=== PATIENT | female | born 1955 | race Caucasian/White ===

== ENCOUNTER → 2020-04-18 12:16 | Outpatient (CLI) | payer OTHER, SELFPAY ==
--- NOTE | ~2020-04-18 | DEXA_ITS ---
Bone Density Report Name: Gisel Roland Age: 65 Sex: Female Ethnicity: White Date of : 1955 Indication: postmenopausal; screening for osteoporosis; height loss; prior fracture; cancer; Referring Provider: THEO, SERA Abdalla Study: Bone densitometry was performed. Exam Date: April 18, 2020 Accession number: [id number] Bone Density: Region BMD T-score Z-score Classification AP Spine (L1-L4) 0.941 -1.0 0.7 Normal Femoral Neck (Left) 0.725 -1.1 0.3 Osteopenia Total Hip (Left) 0.948 0.1 1.2 Normal Femoral Neck (Right) 0.800 -0.4 1.0 Normal Total Hip (Right) 0.970 0.2 1.4 Normal Total Hip Mean 0.959 0.2 1.3 Normal World Health Organization criteria for BMD impression classify patients as: Normal (T-score at or above -1.0), Osteopenia (T-score between -1.0 and -2.5), or Osteoporosis (T-score at or below -2.5). 10-year Fracture Risk(1): Major Osteoporotic Fracture 12% Hip Fracture 0.8% Reported Risk Factors: [place] (), Neck BMD=0.725, BMI=37.3, previous fracture (1) FRAX(R) Version 3.08. Fracture probability calculated for an untreated patient. Fracture probability may be lower if the patient has received treatment. Clinical Information Provided by Patient: Has had a low trauma fracture Has used the following medications: Prolia (i.e. denosumab), Vitamin D, Calcium Has the following medical conditions: Cancer Patient maximum height was 68 Menopause Age: 41 No regular weight bearing exercise Does not regularly consume dairy products Drinks caffeinated beverages Onset of menses at age 17 Number of children 3 Impression: The patient has low bone mass, based on the Left Femoral Neck T-score. The patient has an estimated ten-year risk of hip fracture of 0.8% and an estimated ten-year risk of major fracture of 12%, based on the WHO FRAX algorithm. The patient has risk factors, including: previous fracture. Discussion: BONE DENSITY IS LOW AT ONE OR MORE SKELETAL SITES. This patient's lowest T-score is low at one or more skeletal sites. It meets the World Health Organization's (WHO) criteria for ?low bone mass? (T-score between -1.0 and -2.5). The patient's 10-year risk of fracture as calculated by FRAX is less than the threshold where pharmacological therapy is recommended by the National Osteoporosis Foundation (NOF). However, all treatment decisions require clinical judgment and consideration of individual patient factors, including patient preferences, comorbidities, previous drug use, risk factors not captured in the FRAX model (e.g., frailty, falls, vitamin D deficiency, increased bone turnover, interval significant decline in bone density) and possible under or overestimation of fracture risk by FRAX. The patient should follow a healthful lifestyle (good nutrition with adequa
== END ==
PROVIDERS: Visit Provider Nurse Practitioner Women's Health
DX: M85.852 Other specified disorders of bone density and structure, left thigh (principal)
CPT/HCPCS: 77080

== ENCOUNTER → 2020-04-27 14:53 | Outpatient (CLI) | payer OTHER, SELFPAY ==
--- NOTE | ~2020-04-27 | XR_ITS ---
EXAMINATION: XR knee LT min 4V, XR tibia fibula LT 2V DATE: 04/27/2020 15:28 INDICATION: Left knee pain rating down the posterior calf TECHNIQUE: 1. Weight bearing anteroposterior and Choudhary, sunrise, and flexed lateral views of the left knee w ere obtained 2. AP and lateral views of the left tibia and fibula were obtained. COMPARISON: None. FINDINGS: Alignment is normal. No fracture. Mild to moderate joint space during the medial compartment of the left knee. Additional mild joint space narrowing at one of the tarsal, metatarsal joints, likely the third. Main joints the mid and hindfoot. Mildly preserved. Moderate-sized plantar calcaneal spur. Pos sible small left ankle joint effusion. Soft tissues are otherwise unremarkable. IMPRESSION: 1. Left knee osteoarthritis with mild to moderate joint space narrowing in the medial compartment. 2. Possible small left knee joint effusion. Reviewed, dictated and finalized at location . 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 Left knee osteoarthritis with mild to moderate joint space narrowing in the medial compartment. 2. Possible small left knee joint effusion.
== END ==
PROVIDERS: PCP Internal Medicine Geriatric Medicine; Visit Provider Internal Medicine Geriatric Medicine
DX: M17.12 Unilateral primary osteoarthritis, left knee (principal)
CPT/HCPCS: 73564; 73590

== ENCOUNTER → 2022-04-21 14:48 | Outpatient (CLI) | payer OTHER, SELFPAY ==
--- NOTE | ~2022-04-21 | DEXA_ITS ---
Bone Density Report Name: RONIT MUNOZ Age: 67 Sex: Female Ethnicity: White Date of : 1955 Indication: monitoring treatment; height loss; prior fracture; cancer; postmenopausal Referring Provider: PATRICIA BAE Study: Bone densitometry was performed. Exam Date: April 21, 2022 Accession number: [id number] Bone Density: Region BMD T-score Z-score Classification AP Spine (L1-L4) 0.970 -0.7 1.1 Normal Femoral Neck (Left) 0.719 -1.2 0.4 Osteopenia Total Hip (Left) 0.951 0.1 1.4 Normal Femoral Neck (Right) 0.753 -0.9 0.7 Normal Total Hip (Right) 0.992 0.4 1.7 Normal Total Hip Mean 0.972 0.3 1.6 Normal World Health Organization criteria for BMD impression classify patients as: Normal (T-score at or above -1.0), Osteopenia (T-score between -1.0 and -2.5), or Osteoporosis (T-score at or below -2.5). 10-year Fracture Risk: FRAX not reported because: Treated for osteoporosis Previous Exams: Region Exam Age BMD T-score BMD Change BMD Change Date g/cm2 vs Baseline vs Previous AP Spine(L1-L4) 04/21/2022 67 0.970 -0.7 0.029* 0.029* 04/18/2020 65 0.941 -1.0 Total Hip(Left) 04/21/2022 67 0.951 0.1 0.003 0.003 04/18/2020 65 0.948 0.1 Total Hip(Right) 04/21/2022 67 0.992 0.4 0.023 0.023 04/18/2020 65 0.970 0.2 *Denotes significance at 95% confidence level, LSC for AP Spine = 0.022 g/cm2, LSC for Total Hip = 0.027 g/cm2 Clinical Information Provided by Patient: Has had a low trauma fracture Is being treated for osteoporosis Has used the following medications: Prolia (i.e. denosumab), Vitamin D, Calcium, ANESTROZOLE Has the following medical conditions: Cancer Patient maximum height was 68 Menopause Age: 41 No regular weight bearing exercise Does not regularly consume dairy products Drinks caffeinated beverages Onset of menses at age 17 Number of children 3 Impression: The patient has low bone mass, based on the Left Femoral Neck T-score. The patient has risk factors, including: previous fracture. No significant bone loss was observed. Discussion: PATIENT UNDER TREATMENT WITH NO SIGNIFICANT BMD LOSS SINCE LAST EXAM. In an untreated patient, BMD typically declines with age. A lack of decline or gain is usually a sign that treatment is efficacious and fracture risk is reduced. It is important to ask patients whether they are taking their medications and to encoura
== END ==
PROVIDERS: PCP Internal Medicine Geriatric Medicine
DX: C50.412 Malignant neoplasm of upper-outer quadrant of left female breast (principal); Z17.0 Estrogen receptor positive status [ER+]; M85.88 Other specified disorders of bone density and structure, other site
CPT/HCPCS: 77080

== ENCOUNTER → 2023-07-08 16:28 | Outpatient (CLI) | payer OTHER, SELFPAY ==
--- NOTE | ~2023-07-08 | XR_ITS ---
EXAMINATION: XR chest 2V DATE: 07/08/2023 16:47 INDICATION: Cough. TECHNIQUE: Frontal and lateral views of the chest were obtained. COMPARISON: None. FINDINGS: There is no pneumonia, pleural effusion, or pneumothorax. The heart size is normal. IMPRESSION: 1. No acute cardiopulmonary disease. Reviewed, dictated and finalized at location E. OPATHIC RESIDENT
== END ==
PROVIDERS: PCP Internal Medicine Geriatric Medicine; Visit Provider Internal Medicine Geriatric Medicine
DX: R05.9 Cough, unspecified (principal)
CPT/HCPCS: 71046

== ENCOUNTER 2025-04-07 14:13 | Outpatient (CLI) | payer OTHER, SELFPAY ==
--- NOTE | ~2025-04-07 | DEXA_ITS ---
Bone Density Report Name: RONIT MUNOZ Age: 69 Sex: Female Ethnicity: White Date of : 1955 Indication: postmenopausal; screening for osteoporosis; Referring Provider: THEO, SERA Abdalla Study: Bone densitometry was performed. Exam Date: April 07, 2025 Accession number: [id number] Bone Density: Region BMD T-score Z-score Classification AP Spine(L1-L4) 0.987 -0.5 1.5 Normal Femoral Neck (Left) 0.694 -1.4 0.3 Osteopenia Total Hip (Left) 0.902 -0.3 1.1 Normal Femoral Neck (Right) 0.718 -1.2 0.5 Osteopenia Total Hip (Right) 0.950 0.1 1.5 Normal Total Hip Mean 0.926 -0.1 1.3 Normal World Health Organization criteria for BMD impression classify patients as: Normal (T-score at or above -1.0), Osteopenia (T-score between -1.0 and -2.5), or Osteoporosis (T-score at or below -2.5). 10-year Fracture Risk(1): Major Osteoporotic Fracture 9.0% Hip Fracture 1.1% Reported Risk Factors: [place] (), Neck BMD=0.694, BMI=33.2 (1) FRAX(R) Version 3.08. Fracture probability calculated for an untreated patient. Fracture probability may be lower if the patient has received treatment. Impression: The patient has low bone mass, based on the Left Femoral Neck T-score. The patient has an estimated ten-year risk of hip fracture of 1.1% and an estimated ten-year risk of major fracture of 9%, based on the WHO FRAX algorithm. Discussion: BONE DENSITY IS LOW AT ONE OR MORE SKELETAL SITES. This patient's lowest T-score is low at one or more skeletal sites. It meets the World Health Organization's (WHO) criteria for ?low bone mass? (T-score between -1.0 and -2.5). The patient's 10-year risk of fracture as calculated by FRAX is less than the threshold where pharmacological therapy is recommended by the National Osteoporosis Foundation (NOF). However, all treatment decisions require clinical judgment and consideration of individual patient factors, including patient preferences, comorbidities, previous drug use, risk factors not captured in the FRAX model (e.g., frailty, falls, vitamin D deficiency, increased bone turnover, interval significant decline in bone density) and possible under or overestimation of fracture risk by FRAX. The patient should follow a healthful lifestyle (good nutrition with adequate calcium and vitamin D, and appropriate weight-bearing exercise). Follow-Up: Consider repeating this study in 2 to 3 years to reassess this patient's status, or sooner if there is some new clinical indication. Reported by: HERNANDEZ on 04/07/2025 3:01:00 PM. Reviewed, dictated and finalized at location A.
--- OUTSIDE RECORDS SUMMARY | 2025-04-07 14:21 | XMS_ITS | Encounter Summary ---
Author Organization [facility] Address [address] [place] [address] Phone Care Team Providers Care Agronomist Name Role Phone Vance Piña MD Primary Care Provider + Felisa Crawley MD Unavailable Cathi Brown MD PhD Unavaila ble Perla Moran PhD Unavailable [phone] Renetta Smith MD Unavailable Slava Leo MD Unavailable Encounter Details Date Type Department Care Team (Latest Contact Info) Description 04/18/2020 Orders Only [facility] Scanning, Provider Social History Tobacco Use Types Packs/Day Years Used Date Smoking Tobacco: Never Smokeless Tobacco: Former Alcohol Use Standard Drinks/Week Comments Yes 7 (1 standard drink = 0.6 oz pur e alcohol) Comments No Sex and Gender Information Value Date Recorded Sex Assigned at Not on file Legal Sex Female 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 Gender Identity Female 03/11/2024 8:04 PM CDT Sexual Orientation Asexual 03/11/2024 8: 04 PM CDT documented as of this encounter Plan of Treatment Not on file documented as of this encounter Procedures Procedure Name Priority Date/Time Associated Diagnosis Comments SCAN - RADIOLOGY/IMAGING 04/18/2020 documented in this encounter Results * SCAN - RADIOLOGY/IMAGING (04/18/2020) Anatomical Region Laterality Modality Other us Provider Scanning Final Result documented in this encounter Visit Diagnoses Not on filedocumented in this encounter Care Teams Agronomist Relationship Specialty Start Date End Date Vance Piña [place] [address] [facility] [address] [place] [address] PCP - General 09/04/16 Felisa Crawley MD [address] [place] [address] Radiation Oncologist Radiation Oncology 06/23/18 Cathi Brown MD PhD [address] [place] [address] Surgeon Surgical Oncology 06/23/18 Perla Moran, PhD [address] [place] [address] Nurse Practitioner Radiation Oncology 06/23/18 Renetta Smith MD [address] [place] [address] Medical Oncologist/Hose Tender Medical Oncology 06/24/18 05/23/20 Slava Leo MD [address] [facility] [address] [place] [address] Medical Oncologist/Hose Tender Medical Oncology 05/24/20 documented as of this encounter
--- OUTSIDE RECORDS SUMMARY | 2025-04-07 14:21 | XMS_ITS ---
Author Organization [facility] Address [address] [place] [address] Care Team Providers Care Boatswain'S Mate Name Role Phone Vance Piña MD Primary Care Provider + Felisa Crawley MD Unavailable Cathi Brown MD PhD Unavaila ble Perla Moran PhD Unavailable [phone] Slava Leo MD Unavailable Active Problems Problem Noted Date Diagnosed Date nursing home (current) use of aromatase inhibitors 07/18/2022 Bone disorder 07/18/2022 Encounter for monitoring aromatase inhibitor the rapy 06/18/2021 Other senior care (current) drug therapy 2 Personal history of colonic polyps 07/13/2020 Overview (07/13/2020): Added automatically from request for surgery [id number] Encounter for follow-up surveillance of breast c ancer 08/26/2018 Use of anastrozole (Arimidex) 08/11/2018 Osteopenia of spine 08/11/2018 Carcinoma of upper-outer lester drant of left breast in female, estrogen receptor positive 06/23/2018 Cancer Staging:Clinical stage from 05/27/2018:Stage IA(cT1, cN0, cM0, G1, ER: Positive, RI: Positive, HER2: Negative) - Signed by Perla Moran, PhD on 06/23/2018 Pathologic stage from 07/02/2018:Stage IA(pT1a, pN0(sn), cM0, G1, ER: Positive, RI: Positive, HER2: Negative) - Signed by Felisa Crawley MD on 07/14/2018 Current Treatment and Therapy Plans No current plan information found. Past Treatment and Therapy Plans Oncology Supportive Care Therapy Plan Plan Name Start Date Discontinue Date Treatment Medications Discontinue Reason Plan Provider DENOSUMAB (PROLIA) INJECTION 05/18/2019 07/18/2022 No medications scheduled. Therapy Complete Destinee Bauer MD Specialty Infusion Treatment Plan Name Start Date Discontinue Date Treatment Medications Discontinue Reason Plan Provider Zoledronic Acid (ZOMETA) Infusion 01/16/2023 07/24/2023 No medications scheduled. Therapy Complete Fadia Lizarraga NP Radiation Treatments * Course C1 L BREAST 201808/06/2018 - 08/12/2018 Treatment Period Energy Fraction Dose Fractions Total Dose Plans Planned VR LT BREAST 08/06/2018 - 08/12/2018 385 10 / 3,850 Reference Points Delivered LT BREAST 3850 08/06/2018 - 08/12/2018 3,850 Resolved Problems Problem Noted Date Diagnosed Date Resolved Date Encounter for screening colonoscopy 07/13/2020 06/18/2021 Overview (07/13/2020): Added automatically from request for surgery [id number] Fall on or from sidewalk curb 11/25/2018 06/18/2021
--- OUTSIDE RECORDS SUMMARY | 2025-04-07 14:21 | XMS_ITS | Encounter Summary ---
Author Organization [facility] Address [address] [place] [address] Phone Care Team Providers Care Conductor Road Freight Name Role Phone Vance Piña MD Primary Care Provider + Felisa Crawley MD Unavailable Cathi Brown MD PhD Unavaila ble Perla Moran PhD Unavailable [phone] Slava Leo MD Unavailable Encounter Details Date Type Department Care Team (Latest Contact Info) Description 12/03/2020 Orders Only [facility] Scanning, Provider Social History Tobacco Use Types Packs/Day Years Used Date Smoking Tobacco: Never Smokeless Tobacco: Former Alcohol Use Standard Drinks/Week Comments Yes 7 (1 standard drink = 0.6 oz pur e alcohol) occasionlly/ weekly Comments No Sex and Gender Information Value Date Recorded Sex Assigned at Not on file 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 Gender Identity Female 03/11/2024 8:04 PM CDT Sexual Orientation Asexual 03/11/2024 8: 04 PM CDT documented as of this encounter Plan of Treatment Not on file documented as of this encounter Procedures Procedure Name Priority Date/Time Associated Diagnosis Comments SCAN - RADIOLOGY/IMAGING 12/03/2020 documented in this encounter Results * SCAN - RADIOLOGY/IMAGING (12/03/2020) Anatomical Region Laterality Modality Other us Provider Scanning Final Result documented in this encounter Visit Diagnoses Not on filedocumented in this encounter Care Teams Conductor Road Freight Relationship Specialty Start Date End Date Vance Piña [place] [address] [facility] [address] [place] [address] PCP - General 09/04/16 Felisa Crawley MD [address] [place] [address] Radiation Oncologist Radiation Oncology 06/23/18 Cathi Brown MD PhD [address] [place] [address] Surgeon Surgical Oncology 06/23/18 Perla Moran, PhD [address] [place] [address] Nurse Practitioner Radiation Oncology 06/23/18 Slava Leo MD [address] [place] [address] Medical Oncologist/Hvac Installer Medical Oncology 05/24/20 documented as of this encounter
--- OUTSIDE RECORDS SUMMARY | 2025-04-07 14:21 | XMS_ITS | Encounter Summary ---
Author Organization [facility] Address [address] [facility] [address] [place] [address] Phone Care Team Providers Care On Air Director Name Role Phone Vance Piña MD Primary Care Provider + Felisa Crawley MD Unavailable Cathi Brown MD PhD Unavaila ble Perla Moran PhD Unavailable [phone] Slava Leo MD Unavailable Encounter Details Date Type Department Care Team (Late st Contact Info) Description 03/15/2025 Results Follow-Up [facility] Medicine Surgery [address] [facility] [address] [place] [address] Oksana Salter, JEFF [address] [facility] [phone] [place] [address] Screening Mammogram Bilateral W Da Social History Tobacco Use Types Packs/Day Years Used Date Smoking Tobacco: Never Passive Smoke Exposure: Never Smokeless Tobacco: Former Alcohol Use Standard Drinks/Week Comments Yes 7 (1 standard drink = 0.6 oz pur e alcohol) occasionlly/ weekly Personal Safety Answer Date Recorded Have you ever been in or are you currently in a harmful physical or emotional relationship or is someone making you feel afraid or unsafe? Denies 08/31/2024 Comments No Sex and Gender Information Value Date Recorded Sex Assigned at Not on file Legal Sex Female 3:48 AM MEDICAL I D SALES Gender Identity Female 03/11/2024 8:04 PM CDT Sexual Orientation Asexual 03/11/2024 8: 04 PM CDT documented as of this encounter Plan of Treatment Not on file documented as of this encounter Visit Diagnoses Not on filedocumented in this encounter Care Teams On Air Director Relationship Specialty Start Date End Date Vance Piña [place] [address] [facility] [address] [place] [address] PCP - General 09/04/16 Felisa Crawley MD [address] [facility] [address] [place] [address] Radiation Oncologist Radiation Oncology 06/23/18 Cathi Brown MD PhD [address] [facility] [address] [place] [address] Surgeon Surgical Oncology 06/23/18 Perla Moran, PhD [address] [facility] [address] [place] [address] Nurse Practitioner Radiation Oncology 06/23/18 Slava Leo MD [address] [facility] [address] [place] [address] Medical Oncologist/Wage And Hour Investigator Medical Oncology 05/24/20 documented as of this encounter
--- OUTSIDE RECORDS SUMMARY | 2025-04-07 14:21 | XMS_ITS | Encounter Summary ---
Author Organization [facility] Address [address] [facility] [place] [address] Care Team Providers Care Carpentry Foreman Name Role Phone Unavailable Primary Care Provider Unavailabl e Encounter Details Date Type Department Care Team (Late st Contact Info) Description 04/08/2019 Lab Requisition [facility] D[facility] [address] [place] [id number] Laurita Bolanos MD [address] [facility] [address] [place] [address] Social History Tobacco Use Types Packs/Day Years Used Date Smoking Tobacco: Never Assessed Comments Unknown Sex and Gender Information Value Date Recorded Sex Assigned at Not on file Legal Sex Female 12:16 PM CDT Gender Identity Not on file Sexual Orientation Not on file documented as of this encounter Plan of Treatment Not on file documented as of this encounter Procedures Procedure Name Priority Date/Time Associated Diagnosis Comments DERMATOPATH TECHNICAL REPORT Routine 04/07/2019 12:00 AM CDT documented in this encounter Results * DERMATOPATH TECHNICAL REPORT (04/07/2019 12:00 AM CDT) Case Report Dermatopathology Report Case: [id number] Authorizing Provider: Laurita Bolanos MD Collected: 04/07/2019 12:00 AM Ordering Location: [facility] Received: 04/08/2019 05:38 AM Pathologist: Ting Glaser MD Specimen: Skin, mid abdomen 9 2:15 PM CDT DERMATOPATHOLOGY LABORATORY Clinical History R/O ISK vs less SCC, VV. Fhx of MM. 9 2:15 PM CDT DERMATOPATHOLOGY LABORATORY Gross Description Specimen A: Received is one formalin filled container labeled with the patient's name and designated mid abdomen. The specimen consists of a shave measuring [id number], bisected. Jar 0. [facility] Dermatopathology Laboratory performed the technical component only. 2:15 PM CDT DERMATOPATHOLOGY LABORATORY Embedded Images 2:15 PM CDT DERMATOPATHOLOGY LABORATORY DISCLAIMER An external and internal positive and negative controls are appropriate for the histochemical, immunohistochemical and immunofluorescence stain(s) in this case (if any), except where stated explicitly. The performance characteristics of the stain(s) cited in this report were developed and its performance characteristic determined by the Dermatopathology Laboratory at [facility], directed by Dr. Sonia Glaser. These tests need not be, and therefore are not, approved by the [place] Food and Drug Administration. The tests are used for clinical purposes. 2:15 PM T DERMATOPATHOLOGY LABORATORY at 1415 CDT Pathology/Cytolog y TISSUE SPECIMEN FROM SKIN / Unknown 04/07/2019 04/08/2019 5:38 AM CDT us Laurita Bolanos MD LAB - PATHOLOGY/CYTOLOGY ORD ERABLES Final Result DERMATOPATHOLOGY LABORATORY [facility] - Department of Dermatology [address] 5th [place] [address], [facility] [phone] documented in this encounter Visit Diagnoses Not on filedocumented in this encounter
--- OUTSIDE RECORDS SUMMARY | 2025-04-07 14:21 | XMS_ITS | Clinical Summary ---
Author Organization [facility] Address [address] [place] [address] Care Team Providers Care Alumni Relations Manager Name Role Phone Vance Piña MD Primary Care Provider + Felisa Cralwey MD Unavailable Cathi Brown MD PhD Unavaila ble Perla Moran PhD Unavailable [phone] Slava Leo MD Unavailable Allergies No known active allergies Medications cholecalciferol (VITAMIN D-3) 1,000 unit tablet Take 1 tablet (1,000 Units total) by mouth every morning Active pantoprazole DR (PROTONIX) 40 mg EC tablet Take 1 tablet (40 mg total) by mouth daily as needed Active cetirizine (ZyrTEC) 10 mg tablet Take 1 tablet (10 mg total) by mouth daily as needed for allergies Active aspirin 81 mg tablet Take 1 tablet (81 mg total) by mouth every morning Active atorvastatin (LIPITOR) 40 mg tablet Take 1 tablet (40 mg total) by mouth every morning Active calcium carbonate-vitamin D3 1,500 mg (600mg elemental) -800 unit per tablet Take 2 tablets by mouth every morning Active acetaminophen (TYLENOL) 500 mg tabletIndications: Pain Take 1 tablet (500 mg total) by mouth every 6 (six) hours as needed for pain. 92 tablet 9 9 Active HYDROcodone-acetam inophen (NORCO) 7.5-325 mg per tablet 0 9 Active ondansetron ODT (ZOFRAN-ODT) 4 mg disintegrating tablet 0 Active losartan (COZAAR) 100 mg tablet 0 Active butalbital-acetami nophen-caffeine (ESGIC) 50-325-40 mg per tablet 0 Active metoprolol XL (TOPROL-XL) 25 mg extended release tablet Take 1 tablet (25 mg total) by mouth daily 1 Active ALPRAZolam (XANAX) 0.25 mg tablet Take 1 tablet (0.25 mg total) by mouth 3 (three) times a day as needed 2 Active hydroCHLOROthiazid e (HYDRODIURIL) 12.5 mg tablet Take 1 tablet (12.5 mg total) by mouth daily 2 Active triamcinolone (KENALOG) 0.1 % cream 2 Active anastrozole (ARIMIDEX) 1 mg tablet Take 1 tablet (1 mg total) by mouth daily 90 tablet 3 3 Active cefdinir (OMNICEF) 300 mg capsule Take 1 capsule (300 mg total) by mouth 2 (two) times a day 5 Active Active Problems Problem Noted Date Diagnosed Date datastage developer (current) use of aromatase inhibitors 07/18/2022 Bone disorder 07/18/2022 Encounter for monitoring aromatase inhibitor the rapy 06/18/2021 Other mcc (current) drug therapy 2 Personal history of colonic polyps 07/13/2020 Overview (07/13/2020): Added automatically from request for surgery [id number] Encounter for follow-up surveillance of breast c ancer 08/26/2018 Use of anastrozole (Arimidex) 08/11/2018 Osteopenia of spine 08/11/2018 Carcinoma of upper-outer lester drant of left breast in female, estrogen receptor positive 06/23/2018 Cancer Staging:Clinical stage from 05/27/2018:Stage IA(cT1, cN0, cM0, G1, ER: Positive, [place]: Positive, HER2: Negative) - Signed by Perla Moran, PhD on 06/23/2018 Pathologic stage from 07/02/2018:Stage IA(pT1a, pN0(sn), cM0, G1, ER: Positive, [place]: Positive, HER2: Negative) - Signed by Felisa Crawley MD on 07/14/2018 Resolved Problems Problem Noted Date Diagnosed Date Resolved Date Encounter for screening colonoscopy 07/13/2020 06/18/2021 Overview (07/13/2020): Added automatically from request for surgery [id number] Fall on or from sidewalk curb 11/25/2018 06/18/2021 Encounters Date Type Department Care Team Description 03/15/2025 Results Follow-Up [facility] [address] [place] [address] [address] [place] [address] Oksana Salter NP Screening Mammogram Bilateral W Da 03/13/2025 3:17 PM CDT - 03/13/2025 11:59 PM CDT Hospital Encounter [facility] - Breast Imaging [address] [place] [id number] Screening mammogram, encounter for Discharge Disposition: Discharge to home or self care 03/13/2025 3:15 PM CDT Office Visit [facility] [address] [place] [address] [address] [place] [address] Oksana Salter NP Carcinoma of upper-outer quadrant of left breast in female, estrogen receptor positive (HCC) (Primary Dx); History of breast cancer; Encounter for screening mammogram for malignant neoplasm of breast from Last 3 Months Immunizations Immunization Administration Dates Next Due Influenza, Quadrivalent, Spl it, Intramuscular 03/23/2019 Influenza, Quadrivalent, Spl it, Preservative Free, Intramuscular 02/17/2020 Influenza, Trivalent, IM (MDV) 03/17/2013,2011 Pfizer SARS-CoV-2 Monovalent Vaccination (12+ Yrs) PURPLE 03/10/2021,08/03/2020,07/13/2020 Tdap 04/08/2012 ZOSTER Recombinant 12/18/2018,10/15/2018, 019 Surgical History Surgery Date Site/Laterality Comments BREAST BIOPSY 05/27/2018 Left IMC TUBAL LIGATION COLONOSCOPY 03/08/2015 MASTECTOMY, PARTIAL 06/15/2018 - 06/14/2019 Left IDC SENTINEL LYMPH NODE BIOPSY 06/15/2018 - 06/14/2019 Left Axillary Medical History Medical History Date Comments Arthritis Breast cancer of upper-outer quadrant of left fe male breast (HCC) Hypertension Colon polyp GERD (gastroesophageal reflux disease) Hyperlipidemia Stroke (HCC) august 2019 History of radiation therapy 2018 Family History Medical History Relation Name Comments Skin cancer Daughter melanoma? 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 Gender Identity Female 03/11/2024 8:04 PM CDT Sexual Orientation Asexual 03/11/2024 8: 04 PM CDT Obstetrics History Para Term AB IAB SAB Ectopic Multiple Livin g Live Births 3 3 Date Outcome GA Total Labor Labor/2nd/3rd Weight Sex Type Anes PTL Krystina A1 A5 Name Clin Last Filed Vital Signs Vital Sign Reading Time Taken Comments Blood Pressure 133/81 07/29/2024 1:25 PM METAL OR WOOD BLOCKER Pulse 57 07/29/2024 1:25 PM METAL OR WOOD BLOCKER Temperature 36.7 C (98 F) 08/31/2024 5:09 PM CDT Respiratory Rate 18 07/29/2024 1:25 PM METAL OR WOOD BLOCKER Oxygen Saturation 96% 07/29/2024 1:25 PM METAL OR WOOD BLOCKER Inhaled Oxygen Concentration - - Weight 97.5 kg (215 lb) 03/13/2025 2:54 PM CDT Height 167.6 cm (5' 5.98) 03/13/2025 2:54 PM CD T Body Mass Index 34.72 03/13/2025 2:54 PM CDT Plan of Treatment Health Maintenance Due Date Last Done Comments Depression Screening 1955 Hepatitis C Screening 1955 Hepatitis B Screening 1974 Pneumococcal vaccine 65+ (1 of 2 - PCV) 1975 Osteoporosis Screening-Bone Density Scan 09/30/2020 09/30/2018 Well Visit 65+ 2021 Fall Risk Assessment 07/26/2021 07/26/2020 DTaP/Tdap/Td Vaccine (2 - Td or Tdap) 04/08/2022 04/08/2012 Covid-19 Vaccine (4 - 2024-2 6 season) 2025 03/10/2021, 08/03/2020, 07/13/2020 Influenza Vaccine (#1) 2025 , 03/23/2019, 03/17/2013, Additional history exists Breast Cancer Screening-Mammogram 03/13/2026 03/13/2025, 03/10/2024, 03/05/2023, Additional history exists Colon Cancer Screening-Colonoscopy 07/26/2030 07/26/2020, 03/08/2015, 03/08/2015 Zoster Vaccine Completed 12/18/2018, 05/0 08/2018, 10/09/2018 Colon Cancer Screening-CT Colonography Discontinued 07/26/2020, 03/08/2015, 03/08/2015 Colon Cancer Screening-DNA Stool Discontinued 07/26/2020, 03/08/2015, 03/08/2015 Colon Cancer Screening-FIT Discontinued 07/26, 03/08/2015, 03/08/2015 Colon Cancer Screening-Sigmoidoscopy Discontinued 07/26/2020, 03/08/2015, 03/08/2015 Procedures Procedure Name Priority Date/Time Associated Diagnosis Comments SCREENING MAMMOGRAM BILATERAL W DA Schedule Routine, Read Routine (OP Routine) 03/13/2025 3:56 PM CDT Screening mammogram, encounter for COLONOSCOPY 07/26/2020 8:41 AM METAL OR WOOD BLOCKER DEXA AXIAL SKELETON BONE DENSITY 1 OR MORE SITES Schedule Routine, Read Routine (OP Routine) 09/30/2018 1:18 PM CDT Malignant neoplasm of upper-outer quadrant of left breast in female, estrogen receptor positive (HCC) from Last 3 Months or Most Recently Relevant to Health Maintenance Results * Screening Mammogram Bilateral W Da (03/13/2025 3:56 PM CDT) Anatomical Region Laterality Modality Breast Bilateral Mammography Impressions 03/14/2025 5:13 PM CDT Bilateral No evidence of malignancy in either breast. OVERALL BI-RADS FINAL ASSESSMENT: 2 - Benign RECOMMENDATION: Recommend bilateral annual screening mammography. Narrative 03/14/2025 5:13 PM CDT EXAMINATION: Screening Mammogram Bilateral W Da: 03/13/2025 COMPARISON: Relevant prior studies available at the time of interpretation were reviewed, including the most recent mammogram on: 03/10/2024, 03/05/2023, and 02/27/2022. TECHNIQUE: Mammography was performed with 2D and 3D digital breast tomosynthesis (DBT) images. CAD was utilized. BREAST PARENCHYMAL COMPOSITION: There are scattered areas of fibroglandular density. FINDINGS: Left 1) Post-Surgical Finding: There are post-surgical findings from a previous lumpectomy with radiation seen in the left breast. Compared to the previous study, there are no significant changes. There has been no interval development of a suspicious finding. This finding is benign. There is no suspicious mass, calcification, or architectural distortion. Right There is no suspicious mass, calcification, or architectural distortion. us Self Screening Mammogram IMG MAMMO PROCEDURES Fi nal Result * COLONOSCOPY (07/26/2020 8:41 AM METAL OR WOOD BLOCKER) Anatomical Region Laterality Modality Other Narrative Procedure Note Diego Berman MD - 07/26/2020 8:41 AM CST [facility] Patient Name: Gisel Roland Procedure Date: 07/26/2020 8:41 AM Date of : 1955 Admit Type: Outpatient Age: 65 Gender: Female Attending MD: Diego Berman M.D. Room: [facility] ENDOSCOPY ROOM 2 Note Status: Finalized Patient Profile: Refer to note in patient chart for documentation of history and physical. Procedure: Colonoscopy Indications: High risk colon cancer surveillance: Personalhistory of colonic polyps, Last colonoscopy: February2015 Referring MD: Vance Piña M.D. Providers: Diego Berman M.D. Impression: - Hemorrhoids found on perianal exam. - The entire examined colon is normal. - The entire examined colon is normal. - No specimens collected. Recommendation: - Discharge patient to home. - Resume previous diet. - Continue present medications. - Repeat colonoscopy in 5 years for surveillance. - Return to primary care physician as previously scheduled. Medicines: Propofol per Anesthesia Complications: No immediate complications. Estimated Blood Loss: Estimated blood loss: none. Procedure: Pre-Anesthesia Assessment: - This assessment was completed [Time ofAssessment] prior to the administration of sedation. The benefits, risks and alternatives of theprocedure and sedation were discussed and informed consentwas obtained. All questions were answered. Please referto the signed informed consent document in the medical record. Bowel prep was administered using a single dose. The bowel preparation used was Miralax via single dose instruction. The bowel preparation used was bisacodyl tablets via single dose instruction.The scope was passed under direct vision. TheColonoscope [id number] was introduced through the anus and advanced to the the cecum, identified by appendiceal orifice and ileocecal valve. The colonoscopy was performed without difficulty. The patient tolerated the procedure well. The qualityof the bowel preparation was good. The colonoscopy was performed without difficulty. The patient tolerated the procedure well. The quality of the bowel preparation was good. Findings: Hemorrhoids were found on perianal exam. The colon (entire examined portion) appeared normal. Electronically signed by Diego Berman M.D. Diego Berman M.D. 07/26/2020 9:42:25 AM Number of Addenda: 0 Note Initiated On: 07/26/2020 8:41 AM Procedure Code(s): --- Professional --- G0105, Colorectal cancer screening; colonoscopy on individual at high risk Diagnosis Code(s): --- Professional --- K64.9, Unspecified hemorrhoids Z86.010, Personal history of colonic polyps CPT copyright 2019 [employer]. All rights reserved. The codes documented in this report are preliminary and upon fitness worker reviewmay be revised to meet current compliance requirements. Recognized by the [employer] for promoting quality in endoscopy Diego Berman MD ENDOSCOPY PROCEDURES Final Re sult * Dexa Axial Skeleton Bone Density 1 or 2 Site (09/30/2018 1:18 PM CDT) Anatomical Region Laterality Modality Body N/A Other 09/30/2018 1:33 PM CDT Impressions 09/30/2018 1:35 PM CDT 1. LUMBAR SPINE T SCORE -1.4; OSTEOPENIA. 2. LEFT HIP T SCORE -1.8 NECK AND -0.6 TOTAL; OSTEOPENIA. FRAX 10 YEAR FRACTURE RISK: MAJOR OSTEOPOROTIC FRACTURE 11% HIP FRACTURE 1.4% REPORTED RISK FACTORS: US (), NECK BMD= 0.644, BMI= 34.5, RHEUMATOID ARTHRITIS COMMENT: W.H.O. defines the T-score of between -1 and -2.5 as osteopenia, the level at which there may be an increased risk of developing osteoporosis and fractures in the future. Osteoporosis is defined as T-score lower than -2.5 (significantly increased risk of fracture due to osteoporosis). T-score is a comparison to peak bone mineral density of young adult reference population. Z-score is a comparison to bone mineral density of sex and age group population. Electronically signed by: Kan Cooley Jr., M.D. Narrative 09/30/2018 1:35 PM CDT DEXA AXIAL SKELETON BONE DENSITY 1 OR MORE SITES HISTORY: Malignant neoplasm of upper-outer quadrant of left female breast. Menopause age 40. FINDINGS: The bone mineral density of the lumbar spine is 0.888 g/cm2. The T-score is -1.4 consistent with osteopenia. The bone mineral density of the total left hip is 0.873 g/cm2; T score is mild central 0.6. The bone mineral density of the left femoral neck is 0.644 g/cm2; T score is -1.8. This is consistent with osteopenia. Procedure Note Kan Cooley Jr., MD - 09/30/2018 DEXA AXIAL SKELETON BONE DENSITY 1 OR MORE SITES HISTORY: Malignant neoplasm of upper-outer quadrant of left female breast. Menopause age 40. FINDINGS: The bone mineral density of the lumbar spine is 0.888 g/cm2. The T-score is -1.4 consistent with osteopenia. The bone mineral density of the total left hip is 0.873 g/cm2; T score is mild central 0.6. The bone mineral density of the left femoral neck is 0.644 g/cm2; T score is -1.8. This is consistent with osteopenia. IMPRESSION: 1. LUMBAR SPINE T SCORE -1.4; OSTEOPENIA. 2. LEFT HIP T SCORE -1.8 NECK AND -0.6 TOTAL; OSTEOPENIA. FRAX 10 YEAR FRACTURE RISK: MAJOR OSTEOPOROTIC FRACTURE 11% HIP FRACTURE 1.4% REPORTED RISK FACTORS: US (), NECK BMD= 0.644, BMI= 34.5, RHEUMATOID ARTHRITIS COMMENT: W.H.O. defines the T-score of between -1 and -2.5 as osteopenia, the level at which there may be an increased risk of developing osteoporosis and fractures in the future. Osteoporosis is defined as T-score lower than -2.5 (significantly increased risk of fracture due to osteoporosis). T-score is a comparison to peak bone mineral density of young adult reference population. Z-score is a comparison to bone mineral density of sex and age group population. Electronically signed by: Kan Cooley Jr., M.D. Renetta Smith MD IMG DXA PROCEDURES Final Result from Last 3 Months or Most Recently Relevant to Health Maintenance Insurance [facility] PPO MEDICARE GENERIC COPAY ASSIST [facility] CHOICE PLUS [place] [id number] [facility] CHOICE PLUS [place] [id number] MEDICARE Advance Directives For more information, please contact: [phone] * Full Code (Latest Code Status on File) Date Activated Date Inactivated Comments 07/26/2020 8:04 AM 07/26/2020 2:27 PM * Full Code Date Activated Date Inactivated Comments 07/26/2020 8:04 AM 07/26/2020 8:04 AM Care Teams Alumni Relations Manager Relationship Specialty Start Date End Date Vance Piña [place] [address] [facility] [address] [place] [address] PCP - General 09/04/16 Felisa Crawley MD [address] [facility] [address] [place] [address] Radiation Oncologist Radiation Oncology 06/23/18 Cathi Brown MD PhD [address] [facility] [address] [place] [address] Surgeon Surgical Oncology 06/23/18 Perla Moran, PhD [address] [facility] [address] [place] [address] Nurse Practitioner Radiation Oncology 06/23/18 Slava Leo MD [address] [facility] [address] [place] [address] Medical Oncologist/Director Supplier Quality Medical Oncology 05/24/20
--- OUTSIDE RECORDS SUMMARY | 2025-04-07 14:21 | XMS_ITS | Encounter Summary ---
Author Organization [facility] Address [address] [place] [address] Phone Care Team Providers Care Medical Oncology Physician Name Role Phone Vance Piña MD Primary Care Provider + Felisa Carwley MD Unavailable Cathi Brown MD PhD Unavaila ble Perla Moran PhD Unavailable [phone] Slava Leo MD Unavailable Encounter Details Date Type Department Care Team (Latest Contact Info) Description 04/21/2022 Orders Only [facility] Scanning, Provider Social History Tobacco Use Types Packs/Day Years Used Date Smoking Tobacco: Never Smokeless Tobacco: Former Alcohol Use Standard Drinks/Week Comments Yes 7 (1 standard drink = 0.6 oz pur e alcohol) occasionlly/ weekly Comments No Sex and Gender Information Value Date Recorded Sex Assigned at Not on file Legal Sex Female 3:48 AM 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 Gender Identity Female 03/11/2024 8:04 PM CDT Sexual Orientation Asexual 03/11/2024 8: 04 PM CDT documented as of this encounter Plan of Treatment Not on file documented as of this encounter Procedures Procedure Name Priority Date/Time Associated Diagnosis Comments SCAN - RADIOLOGY/IMAGING 04/21/2022 documented in this encounter Results * SCAN - RADIOLOGY/IMAGING (04/21/2022) Anatomical Region Laterality Modality Other us Provider Scanning Final Result documented in this encounter Visit Diagnoses Not on filedocumented in this encounter Care Teams Medical Oncology Physician Relationship Specialty Start Date End Date Vance Piña [place] [address] [facility] [address] [place] [address] PCP - General 09/04/16 Felisa Crawley MD [address] [place] [address] Radiation Oncologist Radiation Oncology 06/23/18 Cathi Brown MD PhD [address] [place] [address] Surgeon Surgical Oncology 06/23/18 Perla Moran, PhD [address] [place] [address] Nurse Practitioner Radiation Oncology 06/23/18 Slava Leo MD [address] [place] [address] Medical Oncologist/Nnp Medical Oncology 05/24/20 documented as of this encounter
--- OUTSIDE RECORDS SUMMARY | 2025-04-07 14:21 | XMS_ITS | Encounter Summary ---
Author Organization [facility] Address [address] [place] [address] Care Team Providers Care Clamp Remover Name Role Phone Unavailable Primary Care Provider Unavailabl e Encounter Details Date Type Department Care Team (Late st Contact Info) Description 08/15/2020 Lab Requisition [facility] DermPath Lab [address] [facility] [place] [id number] Laurita Bolanos MD [address] [facility] [address] [place] [address] Social History Tobacco Use Types Packs/Day Years [...] Procedure Name Priority Date/Time Associated Diagnosis Comments DERMATOPATHOLOGY Routine 08/14/2020 12:0 0 AM BURNING PLANT OPERATOR documented in this encounter Results * DERMATOPATHOLOGY (08/14/2020 12:00 AM BURNING PLANT OPERATOR) Case Report Dermatopathology Report Case: [id number] Authorizing Provider: Laurita Bolanos MD Collected: 08/14/2020 12:00 AM Ordering Location: [facility] Derm[facility] Lab Received: 08/15/2020 09:44 AM Pathologist: Ting Glaser MD Specimens: A) - Skin, chin B) - Skin, left cheek 3:45 PM BURNING PLANT OPERATOR DERMATOPATHOLOGY LABORATORY Final Diagnosis Specimen A. SKIN, chin: INTRADERMAL MELANOCYTIC NEVUS (D22.39) Specimen B. SKIN, left cheek: VERRUCA VULGARIS (B07.8) 3:45 PM BURNING PLANT OPERATOR DERMATOPATHOLOGY LABORATORY at 1545 BURNING PLANT OPERATOR Clinical History Telangiectasia papule R/O nevus vs BCC. B: R/O ISK vs VV vs SCC. 3:45 PM [facility] DERMATOPATHOLOGY LABORATORY Gross Description Specimen A: Received is one formalin filled container labeled with the patient's name and designated chin. The specimen consists of a shave biopsy measuring [id number]. Jar 0. Specimen B: Received is one formalin filled container labeled with the patient's name and designated left cheek. The specimen consists of a shave biopsy measuring [id number]. Jar 0. 3:45 PM [facility] DERMATOPATHOLOGY LABORATORY Microscopic Description Specimen A. SKIN, chin: There are nests of cytologically bland melanocytes within the dermis that mature with depth. Specimen B. SKIN, left cheek: There is digitated epidermal hyperplasia, hypergranulosis, vacuolated granular layer cells, and compact hyperorthokeratosis . 3:45 PM [facility] DERMATOPATHOLOGY LABORATORY Disclaimer An external and internal positive and negative controls are appropriate for the histochemical, immunohistochemical and immunofluorescence stain(s) in this case (if any), except where stated explicitly. The performance characteristics of the stain(s) cited in this report were developed and its performance characteristic determined by the Dermatopathology Laboratory at [facility], directed by Dr. Sonia lGaser. These tests need not be, and therefore are not, approved by the [place] Food and Drug Administration. The tests are used for clinical purposes. Billing Codes Specimen Charges Stain Charges 05411 02666 1 1 3:45 PM [facility] DERMATOPATHOLOGY LABORATORY Embedded Images 3:45 PM [facility] DERMATOPATHOLOGY LABORATORY Pathology/Cytology TISSUE SPECIMEN FROM SKIN / Unknown 08/14/2020 08/15/2020 9:44 AM BURNING PLANT OPERATOR Miscellaneous samples (specimen) TISSUE SPECIMEN FROM SKIN / Unknown 08/14/2020 08/15/2020 9:44 AM BURNING PLANT OPERATOR us Laurita Bolanos MD LAB - PATHOLOGY/CYTOLOGY ORD ERABLES Final Result DERMATOPATHOLOGY LABORATORY [facility] - Department of Dermatology [facility] [address] [facility] [phone] documented in this encounter Visit Diagnoses Not on filedocumented in this encounter
--- OUTSIDE RECORDS SUMMARY | 2025-04-07 14:21 | XMS_ITS | Clinical Summary ---
Author Organization [facility] Address [address] [place] [address] Care Team Providers Care Lint Cleaner Name Role Phone Unavailable Primary Care Provider Unavailabl e Source Comments [facility],non-owned Affiliates and Associated Physician Practices is amultiple site organization consisting of ambulatory clinics and hospital sitesin [place], [place], [place] and [place]. This disclosure is being madepursuant to the Care Everywhere program and may not contain all information available regarding this patient. Last updated 18.[facility] [employer] Social History Tobacco Use Types Packs/Day Years Used Date Smoking Tobacco: Never Assessed Comments Unknown Sex and Gender Information Value Date Recorded Sex Assigned at Not on file Legal Sex Female 12:16 PM CDT Gender Identity Not on file Sexual Orientation Not on file Plan of Treatment Health Maintenance Due Date Last Done Comments BONE DENSITY TESTING 1955 COLOGUARD (AGES 45-75) - COL ON CA SCREENING 1956 COLON MONITORING 1956 COLONOSCOPY - COLON CA SCREENING 1956 CT COLONOGRAPHY - COLON CA SCREENING 1955 Colorectal Cancer Screening 1956 FIT - COLON CA SCREENING 1956 FLEX SIG - COLON CA SCREENING 1956 LIPID TESTING 1956 MAMMOGRAM 1956 HEPATITIS C SCREENING 04/13/1974 DTAP/TDAP/TD VACCINES (1 - Tdap) 1975 PNEUMOCOCCAL VACCINE 50+ (1 of 1 - PCV) 2006 ZOSTER VACCINE (1 of 2) 2006 DEPRESSION SCREENING 06/15/2024 COVID-19 VACCINE ( - 2023-2 5 season) 2025 INFLUENZA VACCINE (#1) 2025 Respiratory Syncytial Virus (RSV) Vaccine Pt: or over 60 yrs (1 - 1-dose 75+ series) 2031 HEPATITIS B VACCINE Aged Out No longe r eligible based on patient's age to complete this topic HIB VACCINE Aged Out No longer eligi ble based on patient's age to complete this topic HPV VACCINE Aged Out No longer eligi ble based on patient's age to complete this topic MENINGOCOCCAL (Group B) VACC INE SHARED DECISION-MAKING Aged Out No longer eligibl e based on patient's age to complete this topic MENINGOCOCCAL GROUPS A/C/Y/W VACCINE Aged Out No longer eligible b ased on patient's age to complete this topic Insurance [employer]
== END 2025-04-07 14:14 | disposition home or self-care (01) ==
LOC: ANHFOHIMG 14:19
PROVIDERS: PCP Internal Medicine Geriatric Medicine; Visit Provider Nurse Practitioner Women's Health
DX: M85.852 Other specified disorders of bone density and structure, left thigh (principal); M85.851 Other specified disorders of bone density and structure, right thigh
CPT/HCPCS: 77080